=== PATIENT | male | born 1970 | race Caucasian/White ===

== ENCOUNTER 2018-06-16 11:48 | Outpatient (CLI) | payer OTHER | END 2018-06-16 20:12 | disposition home or self-care (01) | LOC: MRD 11:48 → EDBD 11:48 → MRD 20:12 | PROVIDERS: ATTEND Neuromusculoskeletal Medicine, Sports Medicine | DX: S72.032D Displaced midcervical fracture of left femur, subsequent encounter for closed fracture with routine healing (principal); X58.XXXD Exposure to other specified factors, subsequent encounter | CPT/HCPCS: 73502 ==